=== PATIENT | female | born 1965 | race Hispanic/Latino ===

== ENCOUNTER 2020-07-02 11:16 | Emergency (ER) | payer SELFPAY ==
[2020-07-02] VITALS (24 sets, daily range): BP systolic 95–135; BP diastolic 60–85; PULSE 53–61; RESP 10–18; O2SAT 94–100
--- NOTE | ~2020-07-02 | XR_ITS ---
EXAMINATION: XR chest 1V portable DATE: 07/02/2020 12:34 INDICATION: Right arm numbness. TECHNIQUE: A single frontal view of the chest was obtained. COMPARISON: None. FINDINGS: A calcified right lung nodule and calcified right hilar lymph nodes are consistent with old granulomatous disease. No pleural effusion or pneumothorax. The heart size is normal. There is a abdullahi triculoatrial shunt with tip in right atrium. IMPRESSION: 1. No acute cardiopulmonary disease. Reviewed, dictated and finalized at location A.
--- NOTE | ~2020-07-02 | CT_ITS ---
EXAMINATION: CT brain wo con DATE: 07/02/2020 12:17 INDICATION: Headache. Nausea. TECHNIQUE: Computed tomography (CT) of the head was performed without intravenous contrast. The mA wa s adjusted according to patient size. Iterative reconstruction technique was employed. The dose-lengt h product was 605.33 mGy-cm. COMPARISON: None FINDINGS: There is a 12 mm partially calcified mass in suprasellar cistern. There is no acute ischemi c infarct or intracranial hemorrhage. There are a few scattered calcifications in the brain. Right la teral ventricle is slitlike. There is a right frontal shunt catheter with tip in the area of the fora men of [place]. There is mild mucosal thickening in the ethmoid sinuses. The mastoid air cells are norm al. The orbits are normal. IMPRESSION: 1. 12 mm partially calcified mass in the suprasellar cistern suspicious for neoplasm or aneurysm. Cor relation with history or brain MRI without and with contrast is recommended. 2. Scattered calcifications in the brain, which may be seen with chronic cysticercosis or other nonsp ecific etiology. 3. Slitlike right lateral ventricle with shunt catheter in expected position. Comparison with prior i maging is recommended. Reviewed, dictated and finalized at location A. IMPRESSION: 1. 12 mm partially calcified mass in the suprasellar cistern suspicious for amira plasm or aneurysm. Correlation with history or brain MRI without and with contr ast is recommended. 2. Scattered calcifications in the brain, which may be seen with chronic cystic ercosis or other nonspecific etiology. 3. Slitlike right lateral ventricle with shunt catheter in expected position. C omparison with prior imaging is recommended.
--- NOTE | 2020-07-02 11:33 | ECG_ITS ---
Measurements Intervals [place] Rate: 33 P: 45 SD: 165 QRS: -10 QRSD: 82 T: -1 QT: 420 QTc: 313 Interpretive Statements SINUS BRADYCARDIA LOW QRS VOLTAGE IN PRECORDIAL LEADS BORDERLINE T WAVE ABNORMALITY- ANT/INF LEADS BASELINE WANDER- I, II, AVR, AVL, AVF, V1, V4 BORDERLINE ECG Electronically Signed On 07-02-2020 11:49:26 CDT by Lavell Henry D.O.
[2020-07-02 12:02] LABS: Basophils Percent Auto 0.3 % (0.2-1.2); Eosinophils Absolute Auto 0.1 K/mm3 (0-0.3); Eosinophils Percent Auto 1.1 % (0-4.4); Hematocrit 42.1 % (37.0-47.0); Hemoglobin 13.7 g/dL (12.0-15.0); Immature Granulocyte Absolute 0.04 K/mm3 (0.00-0.031); Immature Granulocyte Percent A 0.5 % (0-0.5); Lymphocytes Absolute Auto 2.15 K/mm3 (0.9-3.2); Lymphocytes Percent Auto 24.3 % (18.3-44.2); Mean Corpuscular HGB Conc 32.5 g/dl (32-36); Mean Corpuscular Hemoglobin 29.3 pg (26-34); Mean Corpuscular Volume 90.1 fl (80-100); Mean Platelet Volume 12.3 fl (7.4-10.4); Monocytes Absolute Auto 0.7 K/mm3 (0.1-0.6); Neutrophils Absolute Auto 5.8 K/mm3 (1.3-6.7); Neutrophils Percent Auto 65.8 % (45.5-73.1); Platelet Count Result 207 k/mm3 (150-375); Red Blood Count 4.67 M/mm3 (4.2-5.4); Red Cell Distribution Width 13.8 % (11.5-14.5); White Blood Count 8.8 K/mm3 (4.5-10.0)
--- NOTE | 2020-07-02 12:13 | ED.NEUROSD ---
HPI - Neuro Symptoms/Deficit General Chief Complaint: Neuro Symptoms/Deficit Stated Complaint: headache, right arm numbness Time Seen by Provider: 07/02/20 11:58 Source: patient and family Limitations: no limitations History of Present Illness HPI Narrative: 55 years old female speaks broken Uz[place], brought to the emergency room by her son because of headache, numbness and weakness of the right upper extremity started yesterday. They are improving. Patient had history of migraine headache, no difference about her headache yesterday or today compared to the past, patient did not take her thyroid medication for months since the beginning of the pandemic, history of hypertension and she is taking her medication for it. Patient does not smoke or drink or uses drugs. Patient received aspirin prior to arrival. Related Data Allergies Allergy/AdvReac Type Severity Reaction Status Date / Time No Known Allergies Allergy Verified 07/02/20 12:00 Review of Systems Review of Systems: Narrative: CONSTITUTIONAL: Denies fever, chills, or sweats. EYES: Denies visual changes, redness, or discharge. ENT: Denies rhinorrhea, congestion, sore throat, or otalgia. CARDIOVASCULAR: Denies chest pain, palpitations, or edema. RESPIRATORY: Denies cough or dyspnea. GASTROINTESTINAL: Denies abdominal pain, nausea, vomiting, or diarrhea. GENITOURINARY: Denies dysuria or hematuria. SKIN: Denies rash or itching. MUSCULOSKELETAL: Denies back pain, joint pain, or myalgia. NEUROLOGIC: Denies headache, numbness, or weakness. PSYCHIATRIC: Denies anxiety or depression. PMFSH Past Medical History Medical History (Updated 07/02/20 @ 12:17 by Roxann Snowden MD) Hypertension Hypothyroidism Social History Social History (Updated 07/02/20 @ 12:17 by Roxann Snowden MD) Social History: Patient does not smoke or drink or uses drugs Second hand tobacco smoke exposure: No Exam Narrative: Exam Narrative: General appearance: Well-developed, well-nourished Skin: Normal color Head: Normocephalic, nontraumatic Eyes: Clear conjunctiva ENT: Oropharynx normal, ears normal, nose normal Neck: Supple, nontender Chest and respiratory: Airway patent, no respiratory distress, no accessory muscle use Heart: Regular rate/rhythm Abdomen: Soft, nontender, no organomegaly, quiet bowel sounds Vascular: Normal peripheral pulses, normal capillary refill. Musculoskeletal: Normal range of motion, nontender back Neurologic: Alert and oriented ?3, [employer] is normal as tested, no gross motor deficit Course Course Emergency Course: Stable Vital Signs Vital signs: Vital Signs Pulse Rate 59 L 07/02/20 11:34 Respiratory Rate 12 07/02/20 11:34 Blood Pressure 135/85 07/02/20 11:34 Pulse Oximetry 97 07/02/20 11:34 Pulse Rate 59 L 07/02/20 11:34 Respiratory Rate 12 07/02/20 11:34 Blood Pressure 135/85 07/02/20 11:34 Pulse Oximetry 97 07/02/20 11:34 MDM - Neuro Symptoms/Deficit MDM Narrative Medical decision making narrative: Patient presents with migraine headache, numbness and weakness right upper extremity started yesterday, gradually getting better. My differential diagnosis as below CT head, CT angio head and neck, chest x-ray, labs ordered. Differential Diagnosis Differential diagnosis: Likely cerebrovascular accident, transient cerebral ischemia and other (Cerebral aneurysm) Lab Data Result diagrams: 07/02/20 11:54 07/02/20 11:54 Labs: Lab Results 07/02/20 07/02/20 07/02/20 Range/Units 11:54 11:54 11:54 WBC 8.8 (4.5-10.0) K/mm3 RBC 4.67 (4.2-5.4) M/mm3 Hgb 13.7 (12.0-15.0) g/dL Hct 42.1 (37.0-47.0) %
[2020-07-02 12:25] LABS: Glucose Point of Care 79 (65-105)
[2020-07-02 13:02] LABS: Partial Thromboplastin Time 26.6 SECONDS (22.3-36.8); Prothrombin Time 13.1 Seconds (11.1-14.7)
[2020-07-02 14:02] LABS: Anion Gap 8 mmol/L (8-16); Blood Urea Nitrogen 17 mg/dL (7-17); Calcium 9.2 mg/dL (8.4-10.2); Carbon Dioxide 29 mmol/L (22-30); Chloride 103 mmol/L (98-107); Estimated Glomerular Filt Rate > 60; Glucose 89 mg/dL (65-105); Potassium 3.9 mmol/L (3.4-5.0); Sodium 140 mmol/L (137-145)
[2020-07-02 14:12] LABS: Troponin I < 0.012 ng/mL (0.000-0.034)
[2020-07-02] MEDS: MORPHINE SULFATE (*CRX) 4 MG/ML INJ IV PUSH (16:02)
[2020-07-02] MEDS: ONDANSETRON INJ 4 MG/2 ML VIAL IV PUSH (16:03)
--- NOTE | 2020-07-02 16:21 | PC.NURSE ---
Report called to Jose OLIVA
--- NOTE | 2020-07-02 17:18 | PC.NURSE ---
Pt transferred to [facility] by EMS at 1710.
== END 2020-07-02 17:14 | disposition short-term general hospital (02) ==
PROVIDERS: Emergency Medicine; Emergency Provider Emergency Medicine
DX: R51.9 Headache, unspecified (principal); G93.9 Disorder of brain, unspecified; I10 Essential (primary) hypertension; E03.9 Hypothyroidism, unspecified; R00.1 Bradycardia, unspecified; R94.31 Abnormal electrocardiogram [ECG] [EKG]
CPT/HCPCS: 36415; 70450; 71045; 80048; 81025; 82948; 84484; 85025; 85610; 85730; 93005; 96374; 96375; 99285; J2270; J2405